=== PATIENT | male | born 1990 | race Caucasian/White ===

== ENCOUNTER 2019-05-19 23:51 | Emergency (ER) | payer SELFPAY, MEDICAID ==
[2019-05-20] MEDS: HYDROCODONE/APAP (5/325) TAB PO (02:55)
[2019-05-20] MEDS: ONDANSETRON (ODT) 4 MG TAB ODT (02:55)
== END 2019-05-20 03:01 | disposition home or self-care (01) ==
LOC: FTE 23:51
DX: R10.32 Left lower quadrant pain (principal); J45.909 Unspecified asthma, uncomplicated; F17.210 Nicotine dependence, cigarettes, uncomplicated
CPT/HCPCS: 99283